=== PATIENT | female | born 1995 | race Caucasian/White ===

== ENCOUNTER 2020-09-09 10:15 | Emergency (ER) | payer OTHER ==
[~2020-09-09] VITALS: Ht 157.5 cm; Wt 59.0 kg
[2020-09-09 10:18] VITALS: BP 103/71
--- NOTE | 2020-09-09 10:25 | NUR ---
Pt taken to bed 5.
--- NOTE | 2020-09-09 10:41 | NUR ---
Dr. Tran is evaluating the patient at bedside.
[2020-09-09] MEDS ORDERED: NACL 0.9% 1,000 ML IV ONE (10:48)
[2020-09-09] MEDS ORDERED: KETOROLAC 30 MG/ML VIAL IVP ONE (10:50)
[2020-09-09 10:56] LABS: APPEARANCE,URINE HAZY (CLEAR); BILIRUBIN,URINE NEGATIVE (NEGATIVE); BLOOD, URINE 3+ (NEGATIVE); COLOR,URINE YELLOW (YELLOW); LEUKOCYTE ESTERASE ,URINE 1+ (NEGATIVE); NITRITE, URINE POSITIVE (NEGATIVE); UGLUCOSE NEGATIVE (NEGATIVE)
[2020-09-09 11:08] LABS: RBC,URINE 0-5 /HPF (0-5)
[2020-09-09 11:09] LABS: WBC,URINE TOO MANY TO COUNT /HPF (0-5)
[2020-09-09 11:12] LABS: BASOPHILS # (AUTO) 0.1 K/uL (0.00-0.22); BASOPHILS % (AUTO) 0.5 % (0.0-2.0); HEMATOCRIT 40.9 % (36-48); HEMOGLOBIN 14.1 g/dL (12.0-16.0); LYMPHOCYTES # (AUTO) 1.4 K/uL (2.5-16.5); LYMPHOCYTES % (AUTO) 9.8 % (20.5-51.1); MEAN CORPUSCULAR HEMOGLOBIN 30 pg (27-31); MEAN CORPUSCULAR HGB CONC 34 g/dL (33-37); MEAN CORPUSCULAR VOLUME 86.5 fL (80-94); MONOCYTES # (AUTO) 1.3 K/uL (0.8-1.0); MONOCYTES % (AUTO) 9.2 % (1.7-9.3); NEUTROPHILS # (AUTO) 11.6 K/uL (1.8-7.7); NEUTROPHILS % (AUTO) 80.5 % (42.2-75.2); PLATELET COUNT (AUTO) 262 K/uL (140-450); RED BLOOD CELL COUNT(AUTO) 4.73 MIL/uL (4.20-5.40); RED CELL DISTRIBUTION WIDTH 12.6 % (11.6-13.7); WHITE BLOOD COUNT (AUTO) 14.4 K/uL (4.8-10.8)
--- NOTE | 2020-09-09 11:22 | NUR ---
PATIENT PRESENTS TO ED WITH DYSURIA, FLANK PAIN AND UTI SYMPTOMS . PT STATES HE WAS SEEN [facility] AND WAS GIVEN BACTRIM FOR UTI, PATIENT STATES THAT SYMPTOMS HAVE GOTTEN WORSE AND THIS MORNIGN SHE WOKE UP WITH A FEVER. DENIES N/V/D; SKIN IS PINK/WARM/DRY; AAOX4 WITH EVEN AND STEADY GAIT; LUNGS CLEAR BL; HR EVEN AND REGULAR; PT DENIES ANY FEVER, CP, SOB, OR COUGH AT THIS TIME; PATIENT STATES PAIN OF 3/10 AT THIS TIME; VSS; PATIENT POSITIONED FOR COMFORT; HOB ELEVATED; BEDRAILS UP X2; BED DOWN. ER MD MADE AWARE OF PT STATUS.
[2020-09-09 11:25] LABS: ANION GAP 15.7 (8-16); CARBON DIOXIDE 26.9 mmol/L (21-32); CREATININE 0.9 mg/dL (0.6-1.3); POTASSIUM 3.6 mmol/L (3.5-5.1); TOTAL BILIRUBIN 0.6 mg/dL (0.0-1.0)
[2020-09-09] MEDS ORDERED: LEVOFLOXACIN 500 MG/D5W PREMIX 100 ML IV ONE (11:50)
--- NOTE | 2020-09-09 12:15 | NUR ---
Patient appears to be resting comfortably in bed. Vital Signs within normal limits. Respirations even and unlabored.
[2020-09-09 12:52] VITALS: BP 108/71
--- NOTE | 2020-09-09 12:52 | NUR ---
Patient discharged with v/s stable. Written and verbal after care instructions given and explained. Patient alert, oriented and verbalized understanding of instructions. Ambulatory with steady gait. All questions addressed prior to discharge. ID band removed. Patient advised to follow up with PMD. Rx of Cipro, [place], and Phenazopyridine given. Patient educated on indication of medication including possible reaction and side effects. Opportunity to ask questions provided and answered.
== END 2020-09-09 12:52 | disposition home or self-care (01) ==
LOC: MED 10:15
DX: N39.0 Urinary tract infection, site not specified (principal); N12 Tubulo-interstitial nephritis, not specified as acute or chronic; Z88.0 Allergy status to penicillin
CPT/HCPCS: 36415; 80053; 81001; 81025; 83605; 85025; 87040; 87086; 96361; 96365; 96375; 99285; J1885; J1956; J7030; 99284